=== PATIENT | male | born 1950 | race Caucasian/White ===

== ENCOUNTER 2018-07-19 12:30 | Inpatient (IN) ==
[~2018-07-19 12:30] MED LIST: DEXTROSE 50% 25 GM/50 ML SYRINGE IV PRN; GLUCAGON 1 MG VIAL IM PRN; ZALEPLON 5 MG CAPSULE PO PRN
[2018-07-19] MEDS: SODIUM CHLORIDE 0.9% 1,000 ML IV SCH (16:43)
[2018-07-19] MEDS: LISINOPRIL 20 MG TABLET PO SCH (16:44)
[2018-07-19] MEDS: CHLORHEXIDINE 0.12% ORAL RINSE 60 ML BOTTLE SWISH/SPIT SCH ×2 (17:02→20:36)
[2018-07-19] MEDS: ATORVASTATIN 40 MG TABLET PO SCH (20:36)
[2018-07-20 03:59] LABS: Basophils % 0.5 % (0.0-0.8); Eosinophils # 0.2 10*3/uL (0.0-0.87); Eosinophils % 2.7 % (0.00-10.9); Hematocrit 41.2 VOL% (42.0-52.0); Hemoglobin 13.5 GM/DL (14.0-18.0); Immature Granulocytes % 0.3 %; Immature Granulocytes Absolute 0.02 #; Lymphocytes # 2.2 10*3/uL (1.4-4.0); Lymphocytes % 29.5 % (21.2-54.2); Mean Corpuscular HGB Conc 32.8 GM/DL (32-36); Mean Corpuscular Hemoglobin 31 PG (27-34); Mean Corpuscular Volume 93.6 FL (87-102); Mean Platelet Volume 10.9 FL (9.6-12.0); Monocytes # 0.5 10*3/uL (0.11-0.8); Monocytes % 6.8 % (1.7-12.7); Neutrophils # 4.5 10*3/uL (1.4-7.4); Neutrophils % 60.2 % (38.7-73.9); Platelet Count 167 T/CUMM (130-400); Red Cell Distribution Width 12.3 % (9.3-17.3); White Blood Count 7.5 T/CUMM (4-12)
[2018-07-20 04:26] LABS: ABG Base Excess 1.2 MMOL/L (-2.5-2.5); ABG HCO3 25.2 MMOL/L (20-26); ABG Oxygen Saturation 93.6 % (95-100); ABG PCO2 37.8 MM HG (35-48); ABG PH 7.441 (7.35-7.45); ABG PO2 71.3 MM HG (80-95); ABG TCO2 26.3 MMOL/L (23-27); Allen Test Positive; Pt O2 Delivery Device Room Air
[2018-07-20 04:42] LABS: Albumin 3.2 G/DL (3.4-5.0); Bilirubin,Total 0.5 MG/DL (0.2-1.0); Calcium 8.9 MG/DL (8.5-10.1); Osmolality,Calculated 276.8 MOS/KG (273-304); Potassium 4.2 MMOL/L (3.5-5.1); Total Protein 6.6 G/DL (6.4-8.3)
[2018-07-20] MEDS: SODIUM CHLORIDE 0.9% 1,000 ML IV SCH (07:57)
[2018-07-20] MEDS: LISINOPRIL 20 MG TABLET PO SCH (08:23)
[2018-07-20] MEDS: CHLORHEXIDINE 0.12% ORAL RINSE 60 ML BOTTLE SWISH/SPIT SCH ×2 (08:38→21:22)
[2018-07-20] MEDS: ATORVASTATIN 40 MG TABLET PO SCH (21:23)
[2018-07-21] MEDS: CHLORHEXIDINE 4% SOLN 118 ML BOTTLE TOP SCH ×4 (09:42→21:45)
[2018-07-21] MEDS: LISINOPRIL 20 MG TABLET PO SCH (09:43)
[2018-07-21] MEDS: CHLORHEXIDINE 0.12% ORAL RINSE 60 ML BOTTLE SWISH/SPIT SCH ×2 (09:44→21:17)
[2018-07-21] MEDS: SODIUM CHLORIDE 0.9% 1,000 ML IV SCH (10:12)
[2018-07-21] MEDS: ATORVASTATIN 40 MG TABLET PO SCH (21:16)
[2018-07-22] MEDS ORDERED: VANCOMYCIN 1,000 MG VIAL ONE (05:08)
[2018-07-22] MEDS ORDERED: CALCIUM CHLORIDE 1,000 MG/10 ML VIAL IV ONE (05:52)
[2018-07-22] MEDS ORDERED: SUFentanil 250 MCG/5 ML AMP ONE ×2 (05:52)
[2018-07-22] MEDS ORDERED: AMINOCAPROIC ACID 5,000 MG/20 ML VIAL IV ONE ×2 (05:53)
[2018-07-22] MEDS ORDERED: MIDAZOLAM 10 MG/2 ML VIAL ONE (05:53)
[2018-07-22] MEDS ORDERED: CEFUROXIME INJ 1,500 MG in SYRINGE 1 EACH IV ONE (06:00)
[2018-07-22] MEDS ORDERED: FAMOTIDINE 20 MG TABLET PO ONE (06:00)
[2018-07-22] MEDS ORDERED: DIAZEPAM 5 MG TABLET PO ONE (06:00)
[2018-07-22] MEDS: SODIUM CHLORIDE 0.9% 1,000 ML IV SCH (06:30)
[2018-07-22 07:37] LABS: ABG Base Excess 0.3 MMOL/L (-2.5-2.5); ABG HCO3 24.8 MMOL/L (20-26); ABG PCO2 38.6 MM HG (35-48); ABG PH 7.414 (7.35-7.45); ABG TCO2 21.7 MMOL/L (23-27); Glucose Heart Surgery 95 MG/DL (74-106); Hematocrit Heart Surgery 38.3 PERCENT (42-52); Hemoglobin Heart Surgery 12.4 G/DL (14.0-18.0); Ionized Calcium Arterial 1.19 MMOL/L (1.21-1.46); PCO2 Patient Temp Arterial 38.6 MMHG; PH Patient Temp Arterial 7.414; Patient Temperature 37 CELCIUS; Potassium Heart/CVR 4.1 MMOL/L (3.5-5.1); Sodium Heart/CVR 133 MMOL/L (135-145)
[2018-07-22 08:01] LABS: Apearance,Urine Slightly Hazy (Clear); Bilirubin,Urine Negative (Negative); Blood, Urine Negative (Negative); Glucose,Urine (UA) Negative (Negative); Ketones,Urine Negative (Negative); Mucus,Urine Occasional /LPF (Occasional); Nitrite,Urine Negative (Negative); Protein,Urine Negative; RBC,Urine 1 /HPF (0-4); Urine Color Yellow (Yellow); Urine Specific Gravity 1.014 (1.001-1.035); Urine Urobilinogen < 2.0 EU/DL (0.2-1.0)
[2018-07-22] MEDS ORDERED: MINERAL OIL/PETROLATUM OPH OINT 3.5 GM TUBE ONE (08:27)
[2018-07-22] MEDS ORDERED: HEPARIN/NACL 0.9% 2 UNITS/ML 500 ML IV ONE (08:27)
[2018-07-22] MEDS ORDERED: PHENYLEPHRINE DRIP 20 MG/250 ML PREMIX IV ONE (08:27)
[2018-07-22] MEDS ORDERED: NITROGLYCERIN DRIP 50 MG/250 ML BOTTLE IV ONE (08:28)
[2018-07-22] MEDS ORDERED: ETOMIDATE 40 MG/20 ML VIAL IV ONE (08:28)
[2018-07-22] MEDS ORDERED: VECURONIUM 10 MG VIAL IV ONE ×2 (08:28→13:58)
[2018-07-22 08:36] LABS: Hematocrit Heart Surgery 30.8 PERCENT (42-52); PCO2 Patient Temp Venous 32.7 MM HG; PH Patient Temp Venous 7.48; PO2 Patient Temp Venous 44.1 MM HG; Potassium Heart/CVR 4.4 MMOL/L (3.5-5.1); VBG Base Excess 1.3 MEQ/L (0-4); VBG HCO3 25.4 MEQ/L (24-28); VBG Oxygen Saturation 87.3 %; VBG PCO2 36.1 MMHG (41-51); VBG PH 7.45; VBG PO2 50.6 MMHG (17-40)
[2018-07-22 08:59] LABS: Hematocrit Heart Surgery 32.1 PERCENT (42-52); Hemoglobin Heart Surgery 10.4 G/DL (14.0-18.0); PCO2 Patient Temp Venous 28.8 MM HG; PH Patient Temp Venous 7.504; Potassium Heart/CVR 4.3 MMOL/L (3.5-5.1); VBG Base Excess 0.3 MEQ/L (0-4); VBG HCO3 24.6 MEQ/L (24-28); VBG Oxygen Saturation 88.9 %; VBG PCO2 34.9 MMHG (41-51); VBG PH 7.445; VBG PO2 52.6 MMHG (17-40)
[2018-07-22] MEDS: LISINOPRIL 20 MG TABLET PO SCH (09:00)
[2018-07-22] MEDS: CHLORHEXIDINE 0.12% ORAL RINSE 60 ML BOTTLE SWISH/SPIT SCH ×2 (09:00→20:59)
[2018-07-22 09:31] LABS: Hematocrit Heart Surgery 33.1 PERCENT (42-52); Hemoglobin Heart Surgery 10.7 G/DL (14.0-18.0); PCO2 Patient Temp Venous 29.2 MM HG; PH Patient Temp Venous 7.508; PO2 Patient Temp Venous 38.1 MM HG; Potassium Heart/CVR 4.6 MMOL/L (3.5-5.1); VBG Base Excess 0.8 MEQ/L (0-4); VBG HCO3 24.9 MEQ/L (24-28); VBG Oxygen Saturation 84.8 %; VBG PCO2 33.8 MMHG (41-51); VBG PH 7.463; VBG PO2 46.9 MMHG (17-40)
[2018-07-22] MEDS ORDERED: CALCIUM CHLORIDE 1,000 MG/10 ML SYRINGE IV ONE (10:04)
[2018-07-22] MEDS ORDERED: PHENYLEPHRINE DRIP 40 MG/250 ML PREMIX IV ONE (10:04)
[2018-07-22] MEDS ORDERED: NITROPRUSSIDE 50 MG/2 ML VIAL ONE (10:04)
[2018-07-22] MEDS ORDERED: POTASSIUM CHLORIDE RIDER 100 ML IV ONE (10:05)
[2018-07-22 10:06] LABS: Hematocrit Heart Surgery 33.2 PERCENT (42-52); Hemoglobin Heart Surgery 10.8 G/DL (14.0-18.0); PCO2 Patient Temp Venous 41.7 MM HG; PH Patient Temp Venous 7.391; PO2 Patient Temp Venous 44.2 MM HG; Potassium Heart/CVR 5.1 MMOL/L (3.5-5.1); VBG Base Excess 0.3 MEQ/L (0-4); VBG HCO3 24.3 MEQ/L (24-28); VBG Oxygen Saturation 77.9 %; VBG PCO2 41.7 MMHG (41-51); VBG PH 7.391; VBG PO2 44.2 MMHG (17-40)
[2018-07-22 10:27] LABS: ABG Base Excess -1.4 MMOL/L (-2.5-2.5); ABG HCO3 23.2 MMOL/L (20-26); ABG Oxygen Saturation 99.7 % (95-100); ABG PCO2 42.2 MM HG (35-48); ABG PH 7.362 (7.35-7.45); ABG TCO2 21.6 MMOL/L (23-27); Glucose Heart Surgery 171 MG/DL (74-106); Hematocrit Heart Surgery 33.6 PERCENT (42-52); Hemoglobin Heart Surgery 10.9 G/DL (14.0-18.0); Ionized Calcium Arterial 1.26 MMOL/L (1.21-1.46); PCO2 Patient Temp Arterial 42.2 MMHG; PH Patient Temp Arterial 7.362; Patient Temperature 37 CELCIUS; Potassium Heart/CVR 4.5 MMOL/L (3.5-5.1); Sodium Heart/CVR 132 MMOL/L (135-145)
[2018-07-22] MEDS ORDERED: MANNITOL 100 GM/500 ML BAG IV ONE (10:29)
[2018-07-22] MEDS ORDERED: FUROSEMIDE 20 MG/2 ML VIAL ONE (10:30)
[2018-07-22] MEDS ORDERED: PROTAMINE SULFATE 250 MG/25 ML VIAL IV ONE (10:30)
[2018-07-22] MEDS ORDERED: DEXTROSE 5% KCL 20 MEQ 20 MEQ/1,000 ML BAG IV ONE (10:30)
[2018-07-22] MEDS ORDERED: methylPREDNISolone SOD SUC 1,000 MG/8 ML VIAL ONE (10:30)
[2018-07-22] MEDS ORDERED: HEPARIN 10,000 UNIT/10 ML VIAL ONE (10:30)
[2018-07-22] MEDS ORDERED: SODIUM BICARBONATE 50 MEQ/50 ML SYRINGE IV ONE ×2 (10:30→18:31)
[2018-07-22] MEDS ORDERED: ALBUMIN 25% 25 GM/100 ML VIAL IV ONE (10:30)
[2018-07-22] MEDS ORDERED: PROTAMINE SULFATE 50 MG/5 ML VIAL IV ONE ×4 (10:31→18:58)
[2018-07-22] MEDS ORDERED: THROMBIN TOPICAL (RECOMBINANT) 5,000 UNIT VIAL TOP ONE ×2 (11:42→12:21)
[2018-07-22 11:47] LABS: ABG Base Excess -1.1 MMOL/L (-2.5-2.5); ABG HCO3 23.5 MMOL/L (20-26); ABG PCO2 43.4 MM HG (35-48); ABG PH 7.358 (7.35-7.45); ABG TCO2 22.6 MMOL/L (23-27); Glucose Heart Surgery 185 MG/DL (74-106); Hematocrit Heart Surgery 27.6 PERCENT (42-52); Hemoglobin Heart Surgery 8.9 G/DL (14.0-18.0); Ionized Calcium Arterial 1.05 MMOL/L (1.21-1.46); PCO2 Patient Temp Arterial 43.4 MMHG; PH Patient Temp Arterial 7.358; Patient Temperature 37 CELCIUS; Potassium Heart/CVR 4.3 MMOL/L (3.5-5.1); Sodium Heart/CVR 134 MMOL/L (135-145)
[2018-07-22] MEDS: PHENYLEPHRINE DRIP 40 MG/250 ML PREMIX IV PRN ×2 (13:05→18:20)
[2018-07-22] MEDS ORDERED: VECURONIUM 10 MG VIAL IV PRN ×2 (13:19)
[2018-07-22] MEDS ORDERED: POTASSIUM CHLORIDE RIDER 10 MEQ in PREMIX 1 EACH IV PRN (13:19)
[2018-07-22] MEDS ORDERED: DEXTROSE 50% 25 GM/50 ML SYRINGE IV PRN ×2 (13:19)
[2018-07-22] MEDS ORDERED: NITROPRUSSIDE 100 MG in DEXTROSE 5% 250 ML IV PRN (13:19)
[2018-07-22] MEDS ORDERED: ONDANSETRON 4 MG/2 ML VIAL IV PRN (13:19)
[2018-07-22] MEDS ORDERED: INSULIN REGULAR 100 UNIT/ML IV ONE (13:19)
[2018-07-22] MEDS ORDERED: MIDAZOLAM 2 MG/2 ML VIAL IV PRN (13:19)
[2018-07-22] MEDS ORDERED: MIDAZOLAM 10 MG/2 ML VIAL IV PRN (13:19)
[2018-07-22] MEDS ORDERED: MAGNESIUM SULF RIDER 4 GM in PREMIX 1 EACH IV PRN (13:19)
[2018-07-22] MEDS ORDERED: INSULIN REGULAR 100 UNIT/ML IV PRN (13:19)
[2018-07-22] MEDS ORDERED: CALCIUM CHLORIDE 1,000 MG/10 ML SYRINGE IV PRN (13:19)
[2018-07-22] MEDS ORDERED: LACTATED RINGERS 250 ML IV PRN (13:19)
[2018-07-22] MEDS ORDERED: MORPHINE 10 MG/1 ML VIAL IV PRN (13:19)
[2018-07-22] MEDS ORDERED: ACETAMINOPHEN 650 MG SUPP RECTAL PRN (13:19)
[2018-07-22] MEDS ORDERED: MAGNESIUM SULF RIDER 2 GM in PREMIX 1 EACH IV PRN (13:19)
[2018-07-22 13:29] LABS: ABG Base Excess -4.3 MMOL/L (-2.5-2.5); ABG HCO3 20.9 MMOL/L (20-26); ABG Oxygen Saturation 99.4 % (95-100); ABG PCO2 45.6 MM HG (35-48); ABG PH 7.296 (7.35-7.45); ABG TCO2 20.5 MMOL/L (23-27); Basophils % 0.2 % (0.0-0.8); Eosinophils # 0.1 10*3/uL (0.0-0.87); Eosinophils % 0.3 % (0.00-10.9); Glucose Heart Surgery 186 MG/DL (74-106); Hematocrit 27.5 VOL% (42.0-52.0); Hematocrit Heart Surgery 29.8 PERCENT (42-52); Hemoglobin 9.1 GM/DL (14.0-18.0); Hemoglobin Heart Surgery 9.6 G/DL (14.0-18.0); Immature Granulocytes Absolute 0.18 #; Lymphocytes # 1.2 10*3/uL (1.4-4.0); Lymphocytes % 6.5 % (21.2-54.2); Mean Corpuscular HGB Conc 33.1 GM/DL (32-36); Mean Corpuscular Hemoglobin 31 PG (27-34); Mean Corpuscular Volume 93.5 FL (87-102); Mean Platelet Volume 10.7 FL (9.6-12.0); Monocytes # 0.8 10*3/uL (0.11-0.8); Monocytes % 4.6 % (1.7-12.7); Neutrophils # 15.3 10*3/uL (1.4-7.4); Neutrophils % 87.4 % (38.7-73.9); Platelet Count 181 T/CUMM (130-400); Potassium Heart/CVR 4.1 MMOL/L (3.5-5.1); Red Blood Count 2.94 MC/CUMM (3.8-5.5); Red Cell Distribution Width 12.7 % (9.3-17.3); White Blood Count 17.6 T/CUMM (4-12)
[2018-07-22] MEDS ORDERED: INSULIN REGULAR DRIP 100 ML IV SCH (13:30)
[2018-07-22] MEDS ORDERED: SODIUM CHLORIDE 0.45% 1,000 ML IV SCH ×2 (13:30)
[2018-07-22 13:41] LABS: INR 1.2; PT Patient Result 12.5 SECS; Partial Thromboplastin Time 29.3 SECS (0-40)
[2018-07-22 13:51] LABS: CKMB % 7.1 %
[2018-07-22] MEDS ORDERED: SEVOFLURANE 1 UNIT/15 MINUTE INH ONE (13:51)
[2018-07-22] MEDS ORDERED: SODIUM CHLORIDE 0.9% 2,000 ML IV ONE (13:52)
[2018-07-22] MEDS ORDERED: SODIUM CHLORIDE 0.9% 300 ML IV ONE (13:52)
[2018-07-22] MEDS ORDERED: ePHEDrine 50 MG/ML AMP ONE (13:52)
[2018-07-22] MEDS ORDERED: AMIODARONE 150 MG/3 ML VIAL ONE (13:52)
[2018-07-22] MEDS ORDERED: LACTATED RINGERS 1,000 ML IV ONE (13:52)
[2018-07-22] MEDS ORDERED: ESMOLOL 100 MG/10 ML VIAL IV ONE (13:52)
[2018-07-22 13:59] LABS: Troponin I 7.6 NG/ML (0.00-0.045)
[2018-07-22 14:13] LABS: Albumin 2.3 G/DL (3.4-5.0); Bilirubin,Total 0.9 MG/DL (0.2-1.0); Calcium 7.3 MG/DL (8.5-10.1); Osmolality,Calculated 284.7 MOS/KG (273-304); Potassium 4.2 MMOL/L (3.5-5.1); Total Protein 4.4 G/DL (6.4-8.3)
[2018-07-22] MEDS: KETOROLAC 30 MG/1 ML VIAL IV SCH ×2 (14:30→20:38)
[2018-07-22 14:40] LABS: ABG Base Excess -3.4 MMOL/L (-2.5-2.5); ABG HCO3 21.6 MMOL/L (20-26); ABG Oxygen Saturation 99.6 % (95-100); ABG PCO2 41.7 MM HG (35-48); ABG PH 7.335 (7.35-7.45); ABG TCO2 20.3 MMOL/L (23-27); Glucose Heart Surgery 166 MG/DL (74-106); Hematocrit Heart Surgery 31.1 PERCENT (42-52); Hemoglobin Heart Surgery 10.1 G/DL (14.0-18.0); Potassium Heart/CVR 4.7 MMOL/L (3.5-5.1)
[2018-07-22] MEDS: ALBUMIN 5% 12.5 GM in PREMIX 1 EACH IV PRN ×4 (15:17→17:30)
[2018-07-22] MEDS: ALBUTEROL/IPRATROPIUM 3 ML NEB RESP TX SCH ×2 (15:23→19:50)
[2018-07-22] MEDS ORDERED: FUROSEMIDE 40 MG/4 ML VIAL IV ONE (15:31)
[2018-07-22 15:56] LABS: Band Neutrophils 7 % (0-10); Lymphocytes 8 % (20-55); Segmented Neutrophils 84 % (50-85)
[2018-07-22 15:59] LABS: ABG Base Excess -3.6 MMOL/L (-2.5-2.5); ABG HCO3 21.4 MMOL/L (20-26); ABG Oxygen Saturation 98.9 % (95-100); ABG PCO2 40.2 MM HG (35-48); ABG PH 7.343 (7.35-7.45); ABG TCO2 20.1 MMOL/L (23-27); Glucose Heart Surgery 170 MG/DL (74-106); Hemoglobin Heart Surgery 9.4 G/DL (14.0-18.0); Potassium Heart/CVR 4.7 MMOL/L (3.5-5.1)
[2018-07-22 16:00] LABS: Anisocytosis Slight
[2018-07-22 16:02] LABS: Hypochromasia Slight; Ovalocytes Few; Poikilocytosis Slight
[2018-07-22 16:03] LABS: Platelet Estimate Normal; Total Cells Counted 100
[2018-07-22 18:12] LABS: ABG Base Excess -5.3 MMOL/L (-2.5-2.5); ABG Oxygen Saturation 98.9 % (95-100); ABG PCO2 46.8 MM HG (35-48); ABG PH 7.271 (7.35-7.45); ABG TCO2 20.1 MMOL/L (23-27); Glucose Heart Surgery 161 MG/DL (74-106); Hematocrit Heart Surgery 28.2 PERCENT (42-52); Hemoglobin Heart Surgery 9.1 G/DL (14.0-18.0); Potassium Heart/CVR 4.2 MMOL/L (3.5-5.1)
[2018-07-22] MEDS: POTASSIUM CHLORIDE RIDER 20 MEQ in PREMIX 1 EACH IV PRN ×2 (18:25→21:21)
[2018-07-22 20:59] LABS: ABG Base Excess -4.2 MMOL/L (-2.5-2.5); ABG HCO3 20.9 MMOL/L (20-26); ABG Oxygen Saturation 99.4 % (95-100); ABG PCO2 41.9 MM HG (35-48); ABG PH 7.321 (7.35-7.45); Glucose Heart Surgery 132 MG/DL (74-106); Hematocrit Heart Surgery 28.9 PERCENT (42-52); Hemoglobin Heart Surgery 9.3 G/DL (14.0-18.0); Potassium Heart/CVR 3.7 MMOL/L (3.5-5.1)
[2018-07-22] MEDS: CEFUROXIME INJ 1,500 MG in SYRINGE 1 EACH IV SCH (20:59)
[2018-07-22 21:24] LABS: CKMB % 6.3 %
[2018-07-22 21:27] LABS: Troponin I 5.01 NG/ML (0.00-0.045)
[2018-07-22] MEDS: MORPHINE 4 MG/1 ML VIAL IV PRN (22:25)
[2018-07-22 22:57] LABS: ABG Base Excess -2.3 MMOL/L (-2.5-2.5); ABG HCO3 22.5 MMOL/L (20-26); ABG Oxygen Saturation 99.2 % (95-100); ABG PCO2 34.7 MM HG (35-48); ABG PH 7.409 (7.35-7.45); ABG TCO2 20.2 MMOL/L (23-27); Glucose Heart Surgery 120 MG/DL (74-106); Hematocrit Heart Surgery 27.3 PERCENT (42-52); Hemoglobin Heart Surgery 8.8 G/DL (14.0-18.0); Potassium Heart/CVR 4.2 MMOL/L (3.5-5.1)
[2018-07-22 23:58] LABS: ABG Base Excess -2.1 MMOL/L (-2.5-2.5); ABG HCO3 22.6 MMOL/L (20-26); ABG Oxygen Saturation 99.3 % (95-100); ABG PCO2 33.9 MM HG (35-48); ABG PH 7.418 (7.35-7.45); ABG TCO2 20.2 MMOL/L (23-27); Glucose Heart Surgery 109 MG/DL (74-106); Hematocrit Heart Surgery 27.5 PERCENT (42-52); Hemoglobin Heart Surgery 8.9 G/DL (14.0-18.0)
[2018-07-23] MEDS: ALBUTEROL/IPRATROPIUM 3 ML NEB RESP TX SCH ×2 (00:57→07:31)
[2018-07-23 01:04] LABS: ABG HCO3 21.9 MMOL/L (20-26); ABG Oxygen Saturation 98.7 % (95-100); ABG PH 7.346 (7.35-7.45); ABG TCO2 20.8 MMOL/L (23-27); Glucose Heart Surgery 122 MG/DL (74-106); Hematocrit Heart Surgery 27.8 PERCENT (42-52); Hemoglobin Heart Surgery 8.9 G/DL (14.0-18.0); Potassium Heart/CVR 4.3 MMOL/L (3.5-5.1)
[2018-07-23] MEDS: ALBUMIN 5% 12.5 GM in PREMIX 1 EACH IV PRN ×2 (01:39→01:54)
[2018-07-23 04:00] LABS: ABG HCO3 23.6 MMOL/L (20-26); ABG PCO2 43.9 MM HG (35-48); ABG PH 7.355 (7.35-7.45); ABG TCO2 23.1 MMOL/L (23-27); Glucose Heart Surgery 147 MG/DL (74-106); Hematocrit Heart Surgery 24.2 PERCENT (42-52); Hemoglobin Heart Surgery 7.8 G/DL (14.0-18.0); Potassium Heart/CVR 4.5 MMOL/L (3.5-5.1)
[2018-07-23] MEDS: MORPHINE 4 MG/1 ML VIAL IV PRN ×5 (04:10→22:18)
[2018-07-23 04:15] LABS: Hematocrit 22.5 VOL% (42.0-52.0); Hemoglobin 7.4 GM/DL (14.0-18.0); Immature Granulocytes % 0.5 %; Immature Granulocytes Absolute 0.05 #; Lymphocytes # 0.8 10*3/uL (1.4-4.0); Lymphocytes % 7.3 % (21.2-54.2); Mean Corpuscular HGB Conc 32.9 GM/DL (32-36); Mean Corpuscular Hemoglobin 30 PG (27-34); Mean Corpuscular Volume 91.1 FL (87-102); Mean Platelet Volume 11.4 FL (9.6-12.0); Monocytes # 0.6 10*3/uL (0.11-0.8); Monocytes % 5.2 % (1.7-12.7); Neutrophils # 9.1 10*3/uL (1.4-7.4); Platelet Count 79 T/CUMM (130-400); Red Blood Count 2.47 MC/CUMM (3.8-5.5); Red Cell Distribution Width 13.7 % (9.3-17.3); White Blood Count 10.5 T/CUMM (4-12)
[2018-07-23 04:34] LABS: Albumin 3.4 G/DL (3.4-5.0); Bilirubin,Direct 0.26 MG/DL (0.0-0.20); Bilirubin,Total 0.8 MG/DL (0.2-1.0); Osmolality,Calculated 290.1 MOS/KG (273-304); Potassium 4.6 MMOL/L (3.5-5.1); Total Protein 5.1 G/DL (6.4-8.3)
[2018-07-23 04:36] LABS: CKMB % 5.1 %
[2018-07-23 04:41] LABS: Troponin I 3.58 NG/ML (0.00-0.045)
[2018-07-23 05:26] LABS: Band Neutrophils 1 % (0-10); Hypochromasia 1+; Lymphocytes 4 % (20-55); Platelet Estimate Decreased; Segmented Neutrophils 93 % (50-85); Total Cells Counted 100
[2018-07-23] MEDS ORDERED: SODIUM CHLORIDE 0.9% 1,000 ML IV PRN (05:29)
[2018-07-23 06:00] LABS: ABG Base Excess -0.4 MMOL/L (-2.5-2.5); ABG HCO3 24.1 MMOL/L (20-26); ABG Oxygen Saturation 98.2 % (95-100); ABG PCO2 43.1 MM HG (35-48); ABG TCO2 23.1 MMOL/L (23-27); Glucose Heart Surgery 121 MG/DL (74-106); Hematocrit Heart Surgery 27.1 PERCENT (42-52); Hemoglobin Heart Surgery 8.7 G/DL (14.0-18.0); Potassium Heart/CVR 4.5 MMOL/L (3.5-5.1)
[2018-07-23] MEDS ORDERED: INSULIN REGULAR 100 UNIT/ML SUBCUT SCH (08:00)
[2018-07-23] MEDS: CHLORHEXIDINE 0.12% ORAL RINSE 60 ML BOTTLE SWISH/SPIT SCH ×3 (09:00→22:25)
[2018-07-23] MEDS: CEFUROXIME INJ 1,500 MG in SYRINGE 1 EACH IV SCH ×3 (09:00→22:20)
[2018-07-23] MEDS ORDERED: DEXTROSE 50% 25 GM/50 ML VIAL IV PRN (09:20)
[2018-07-23] MEDS ORDERED: GLUCAGON 1 MG VIAL IM PRN ×2 (09:20)
[2018-07-23] MEDS ORDERED: ALUMINUM/MAGNES/SIMETH MAX STR 30 ML UDCUP PO PRN (09:20)
[2018-07-23] MEDS ORDERED: DEXTROSE 50% 25 GM/50 ML SYRINGE IV PRN (09:20)
[2018-07-23] MEDS ORDERED: MAGNESIUM HYDROXIDE SUSP 30 ML UDCUP PO PRN (09:20)
[2018-07-23] MEDS ORDERED: ACETAMINOPHEN 325 MG TABLET PO PRN (09:20)
[2018-07-23] MEDS ORDERED: MAGNESIUM SULF RIDER 2 GM in PREMIX 1 EACH IV PRN (09:20)
[2018-07-23] MEDS ORDERED: MAGNESIUM SULF RIDER 4 GM in PREMIX 1 EACH IV PRN (09:20)
[2018-07-23] MEDS ORDERED: ZALEPLON 5 MG CAPSULE PO PRN (09:20)
[2018-07-23] MEDS ORDERED: POTASSIUM CHLORIDE 20 MEQ TABLET PO PRN (09:20)
[2018-07-23] MEDS ORDERED: SODIUM CHLOR 0.45% KCL 20 MEQ 20 MEQ/1,000 ML BAG IV SCH (09:20)
[2018-07-23] MEDS ORDERED: ONDANSETRON 4 MG/2 ML VIAL IV PRN (09:20)
[2018-07-23] MEDS ORDERED: NON-FORMULARY MEDICATION (Umeclidinium Brm/Vilanterol Tr [Anoro Ellipta] 1 PUFF) INH SCH (09:20)
[2018-07-23] MEDS: PANTOPRAZOLE 40 MG TABLET PO SCH (09:50)
[2018-07-23] MEDS: ASPIRIN CHEW 81 MG TABLET PO SCH (09:50)
[2018-07-23] MEDS: FERROUS SULFATE 325 MG TABLET PO SCH (09:50)
[2018-07-23] MEDS: DOCUSATE SODIUM 100 MG CAPSULE PO SCH (09:50)
[2018-07-23] MEDS: LISINOPRIL 20 MG TABLET PO SCH (09:50)
[2018-07-23] MEDS: KETOROLAC 30 MG/1 ML VIAL IV SCH ×3 (09:50→20:30)
[2018-07-23] MEDS: FLUTICASONE 50 MCG NASAL SPRAY 16 GM BOTTLE BOTH NARES SCH (10:00)
[2018-07-23] MEDS: INSULIN REGULAR 100 UNIT/ML SUBCUT SCH ×2 (16:28→22:26)
[2018-07-23] MEDS: ATORVASTATIN 40 MG TABLET PO SCH (20:30)
[2018-07-24] MEDS: MORPHINE 4 MG/1 ML VIAL IV PRN ×2 (01:48→23:18)
[2018-07-24] MEDS: INSULIN REGULAR 100 UNIT/ML SUBCUT SCH ×6 (01:49→20:34)
[2018-07-24] MEDS: KETOROLAC 30 MG/1 ML VIAL IV SCH ×4 (03:40→21:16)
[2018-07-24] MEDS: oxyCODONE/ACETAMINOPHEN 5-325 MG TABLET PO PRN ×3 (04:40→20:22)
[2018-07-24 05:56] LABS: Albumin 3.2 G/DL (3.4-5.0); Bilirubin,Direct 0.17 MG/DL (0.0-0.20); Bilirubin,Indirect 0.7 MG/DL (0.0-1.0); Bilirubin,Total 0.9 MG/DL (0.2-1.0); CKMB % 2.3 %; Calcium 8.4 MG/DL (8.5-10.1); Osmolality,Calculated 283.7 MOS/KG (273-304); Potassium 4.9 MMOL/L (3.5-5.1); Total Protein 5.7 G/DL (6.4-8.3)
[2018-07-24 05:59] LABS: Troponin I 1.68 NG/ML (0.00-0.045)
[2018-07-24] MEDS ORDERED: FUROSEMIDE 40 MG/4 ML VIAL IV ONE (06:00)
[2018-07-24 06:31] LABS: Basophils % 0.1 % (0.0-0.8); Hematocrit 25.5 VOL% (42.0-52.0); Hemoglobin 8.5 GM/DL (14.0-18.0); Immature Granulocytes % 0.5 %; Immature Granulocytes Absolute 0.08 #; Lymphocytes % 6.2 % (21.2-54.2); Mean Corpuscular HGB Conc 33.3 GM/DL (32-36); Mean Corpuscular Hemoglobin 31 PG (27-34); Mean Corpuscular Volume 93.4 FL (87-102); Mean Platelet Volume 12.7 FL (9.6-12.0); Monocytes # 1.3 10*3/uL (0.11-0.8); Monocytes % 8.6 % (1.7-12.7); Neutrophils % 84.6 % (38.7-73.9); Red Blood Count 2.73 MC/CUMM (3.8-5.5)
[2018-07-24 06:35] LABS: Platelet Count 71 T/CUMM (130-400); White Blood Count 15.4 T/CUMM (4-12)
[2018-07-24 07:00] LABS: Hypochromasia Slight; Platelet Estimate Decreased
[2018-07-24] MEDS: ASPIRIN CHEW 81 MG TABLET PO SCH (09:03)
[2018-07-24] MEDS: LISINOPRIL 20 MG TABLET PO SCH (09:03)
[2018-07-24] MEDS: FERROUS SULFATE 325 MG TABLET PO SCH (09:03)
[2018-07-24] MEDS: DOCUSATE SODIUM 100 MG CAPSULE PO SCH (09:03)
[2018-07-24] MEDS: PANTOPRAZOLE 40 MG TABLET PO SCH (09:03)
[2018-07-24] MEDS: CHLORHEXIDINE 0.12% ORAL RINSE 60 ML BOTTLE SWISH/SPIT SCH ×2 (09:04→21:16)
[2018-07-24] MEDS: FLUTICASONE 50 MCG NASAL SPRAY 16 GM BOTTLE BOTH NARES SCH (09:04)
[2018-07-24] MEDS ORDERED: AMIODARONE INJ 150 MG in DEXTROSE 5% 100 ML IV ONE (13:43)
[2018-07-24] MEDS ORDERED: DILTIAZEM 50 MG/10 ML VIAL IV ONE (13:45)
[2018-07-24] MEDS ORDERED: AMIODARONE INJ 450 MG in DEXTROSE 5% 241 ML IV SCH (14:00)
[2018-07-24 14:18] LABS: Hematocrit 26.2 VOL% (42.0-52.0); Hemoglobin 8.7 GM/DL (14.0-18.0)
[2018-07-24] MEDS: dilTIAZem Drip 125 MG/125 ML PREMIX IV SCH (14:20)
[2018-07-24] MEDS: AMIODARONE INJ 450 MG in DEXTROSE 5% 241 ML IV SCH ×2 (15:05→23:00)
[2018-07-24] MEDS: ATORVASTATIN 40 MG TABLET PO SCH (21:16)
[2018-07-25] MEDS: INSULIN REGULAR 100 UNIT/ML SUBCUT SCH ×6 (00:09→20:39)
[2018-07-25] MEDS: oxyCODONE/ACETAMINOPHEN 5-325 MG TABLET PO PRN (01:21)
[2018-07-25] MEDS: KETOROLAC 30 MG/1 ML VIAL IV SCH ×4 (04:20→20:52)
[2018-07-25 04:53] LABS: Basophils % 0.1 % (0.0-0.8); Eosinophils % 0.2 % (0.00-10.9); Hematocrit 24.9 VOL% (42.0-52.0); Hemoglobin 8.2 GM/DL (14.0-18.0); Immature Granulocytes % 0.9 %; Immature Granulocytes Absolute 0.17 #; Mean Corpuscular HGB Conc 32.9 GM/DL (32-36); Mean Corpuscular Hemoglobin 31 PG (27-34); Mean Corpuscular Volume 94.3 FL (87-102); Mean Platelet Volume 11.5 FL (9.6-12.0); Monocytes # 1.6 10*3/uL (0.11-0.8); Neutrophils # 14.1 10*3/uL (1.4-7.4); Neutrophils % 78.8 % (38.7-73.9); Platelet Count 75 T/CUMM (130-400); Red Blood Count 2.64 MC/CUMM (3.8-5.5); Red Cell Distribution Width 13.4 % (9.3-17.3); White Blood Count 17.9 T/CUMM (4-12)
[2018-07-25 05:09] LABS: Alanine Aminotransferase 25 U/L (16-61); Alkaline Phosphatase 54 U/L (45-117); Aspartate Amino Transferase 27 U/L (0-37); Blood Urea Nitrogen 33 MG/DL (7-18); Calcium 8.4 MG/DL (8.5-10.1); Glucose 110 MG/DL (74-106); Osmolality,Calculated 277.1 MOS/KG (273-304); Sodium 135 MMOL/L (136-145); Total Protein 5.7 G/DL (6.4-8.3)
[2018-07-25 05:32] LABS: Band Neutrophils 1 % (0-10); Eosinophils 1 % (0-10); Hypochromasia Slight; Lymphocytes 12 % (20-55); Microcytosis Slight; Segmented Neutrophils 79 % (50-85); Total Cells Counted 100
[2018-07-25 05:33] LABS: Platelet Estimate Decreased
[2018-07-25] MEDS: dilTIAZem Drip 125 MG/125 ML PREMIX IV SCH ×2 (07:55→14:47)
[2018-07-25] MEDS: LISINOPRIL 20 MG TABLET PO SCH (08:52)
[2018-07-25] MEDS: PANTOPRAZOLE 40 MG TABLET PO SCH (08:53)
[2018-07-25] MEDS: FERROUS SULFATE 325 MG TABLET PO SCH (08:53)
[2018-07-25] MEDS: DOCUSATE SODIUM 100 MG CAPSULE PO SCH (08:53)
[2018-07-25] MEDS: ASPIRIN CHEW 81 MG TABLET PO SCH (08:53)
[2018-07-25] MEDS: CHLORHEXIDINE 0.12% ORAL RINSE 60 ML BOTTLE SWISH/SPIT SCH ×2 (08:58→20:55)
[2018-07-25] MEDS: FLUTICASONE 50 MCG NASAL SPRAY 16 GM BOTTLE BOTH NARES SCH (08:59)
[2018-07-25] MEDS: APIXABAN 5 MG TABLET PO SCH ×2 (09:07→20:52)
[2018-07-25] MEDS: ATORVASTATIN 40 MG TABLET PO SCH (20:52)
[2018-07-26] MEDS: INSULIN REGULAR 100 UNIT/ML SUBCUT SCH (00:42)
[2018-07-26] MEDS: oxyCODONE/ACETAMINOPHEN 5-325 MG TABLET PO PRN (01:56)
[2018-07-26] MEDS: LISINOPRIL 20 MG TABLET PO SCH (09:53)
[2018-07-26] MEDS: ASPIRIN CHEW 81 MG TABLET PO SCH (09:53)
[2018-07-26] MEDS: APIXABAN 5 MG TABLET PO SCH ×2 (09:54→21:45)
[2018-07-26] MEDS: FLUTICASONE 50 MCG NASAL SPRAY 16 GM BOTTLE BOTH NARES SCH (09:54)
[2018-07-26] MEDS: DOCUSATE SODIUM 100 MG CAPSULE PO SCH (09:54)
[2018-07-26] MEDS: CHLORHEXIDINE 0.12% ORAL RINSE 60 ML BOTTLE SWISH/SPIT SCH ×2 (09:54→21:45)
[2018-07-26] MEDS: PANTOPRAZOLE 40 MG TABLET PO SCH (09:54)
[2018-07-26] MEDS: FERROUS SULFATE 325 MG TABLET PO SCH (09:54)
[2018-07-26] MEDS: AMIODARONE 200 MG TABLET PO SCH ×2 (10:56→21:45)
[2018-07-26] MEDS: dilTIAZem Drip 125 MG/125 ML PREMIX IV SCH (10:57)
[2018-07-26] MEDS: AMIODARONE INJ 450 MG in DEXTROSE 5% 241 ML IV SCH (10:58)
[2018-07-26] MEDS ORDERED: hydrALAZINE 20 MG/1 ML VIAL IV PRN (12:14)
[2018-07-26] MEDS ORDERED: DILTIAZEM CD 120 MG CAPSULE PO SCH (12:30)
[2018-07-26] MEDS: ATORVASTATIN 40 MG TABLET PO SCH (21:45)
[2018-07-27 05:49] LABS: Basophils % 0.4 % (0.0-0.8); Eosinophils # 0.3 10*3/uL (0.0-0.87); Eosinophils % 3.3 % (0.00-10.9); Hematocrit 29.8 VOL% (42.0-52.0); Hemoglobin 9.8 GM/DL (14.0-18.0); Immature Granulocytes % 0.6 %; Immature Granulocytes Absolute 0.05 #; Lymphocytes # 0.1 10*3/uL (1.4-4.0); Mean Corpuscular HGB Conc 32.9 GM/DL (32-36); Mean Corpuscular Hemoglobin 31 PG (27-34); Mean Corpuscular Volume 94.3 FL (87-102); Mean Platelet Volume 10.6 FL (9.6-12.0); Monocytes # 0.9 10*3/uL (0.11-0.8); Monocytes % 11.1 % (1.7-12.7); Neutrophils # 6.7 10*3/uL (1.4-7.4); Neutrophils % 83.6 % (38.7-73.9); Platelet Count 156 T/CUMM (130-400); Red Blood Count 3.16 MC/CUMM (3.8-5.5); Red Cell Distribution Width 14.4 % (9.3-17.3)
[2018-07-27 06:13] LABS: Alanine Aminotransferase 9 U/L (16-61); Albumin 1.9 G/DL (3.4-5.0); Alkaline Phosphatase 86 U/L (45-117); Aspartate Amino Transferase 9 U/L (0-37); Bilirubin,Indirect 0.3 MG/DL (0.0-1.0); Bilirubin,Total < 0.39 MG/DL (0.2-1.0); Blood Urea Nitrogen 42 MG/DL (7-18); Calcium 7.1 MG/DL (8.5-10.1); Glucose 122 MG/DL (74-106); Potassium 4.4 MMOL/L (3.5-5.1); Sodium 136 MMOL/L (136-145); Troponin I 0.017 NG/ML (0.00-0.045)
[2018-07-27 06:27] LABS: Eosinophils 2 % (0-10); Hypochromasia Slight; Lymphocytes 1 % (20-55); Segmented Neutrophils 87 % (50-85); Total Cells Counted 100
[2018-07-27 06:28] LABS: Burr Cells Few; Ovalocytes 2+; Platelet Estimate Normal
[2018-07-27] MEDS: LISINOPRIL 20 MG TABLET PO SCH (08:34)
[2018-07-27] MEDS: DOCUSATE SODIUM 100 MG CAPSULE PO SCH (08:35)
[2018-07-27] MEDS: FLUTICASONE 50 MCG NASAL SPRAY 16 GM BOTTLE BOTH NARES SCH (08:35)
[2018-07-27] MEDS: PANTOPRAZOLE 40 MG TABLET PO SCH (08:35)
[2018-07-27] MEDS: FERROUS SULFATE 325 MG TABLET PO SCH (08:35)
[2018-07-27] MEDS: ASPIRIN CHEW 81 MG TABLET PO SCH (08:35)
[2018-07-27] MEDS: APIXABAN 5 MG TABLET PO SCH ×2 (08:35→20:40)
[2018-07-27] MEDS: AMIODARONE 200 MG TABLET PO SCH ×2 (08:35→20:40)
[2018-07-27] MEDS: CHLORHEXIDINE 0.12% ORAL RINSE 60 ML BOTTLE SWISH/SPIT SCH ×2 (08:36→20:45)
[2018-07-27 09:58] LABS: Calcium 8.5 MG/DL (8.5-10.1); Osmolality,Calculated 275.1 MOS/KG (273-304); Potassium 4.2 MMOL/L (3.5-5.1)
[2018-07-27] MEDS ORDERED: cloNIDine 0.1 MG TABLET PO SCH (15:00)
[2018-07-27] MEDS ORDERED: CLORAZEPATE 7.5 MG TABLET PO ONE (19:36)
[2018-07-27] MEDS: ATORVASTATIN 40 MG TABLET PO SCH (20:40)
[2018-07-28] MEDS: oxyCODONE/ACETAMINOPHEN 5-325 MG TABLET PO PRN ×2 (01:40→21:03)
[2018-07-28] MEDS ORDERED: AMIODARONE INJ 150 MG in DEXTROSE 5% 100 ML IV ONE (04:18)
[2018-07-28 04:30] LABS: Basophils % 0.2 % (0.0-0.8); Eosinophils # 0.4 10*3/uL (0.0-0.87); Eosinophils % 3.1 % (0.00-10.9); Hematocrit 24.1 VOL% (42.0-52.0); Hemoglobin 7.7 GM/DL (14.0-18.0); Immature Granulocytes % 0.9 %; Immature Granulocytes Absolute 0.12 #; Lymphocytes # 2.4 10*3/uL (1.4-4.0); Lymphocytes % 18.3 % (21.2-54.2); Mean Corpuscular Hemoglobin 30 PG (27-34); Mean Corpuscular Volume 93.8 FL (87-102); Mean Platelet Volume 10.9 FL (9.6-12.0); Neutrophils % 69.5 % (38.7-73.9); Platelet Count 144 T/CUMM (130-400); Red Blood Count 2.57 MC/CUMM (3.8-5.5); Red Cell Distribution Width 12.9 % (9.3-17.3); White Blood Count 12.9 T/CUMM (4-12)
[2018-07-28 06:54] LABS: Alanine Aminotransferase 44 U/L (16-61); Albumin 2.8 G/DL (3.4-5.0); Alkaline Phosphatase 69 U/L (45-117); Aspartate Amino Transferase 29 U/L (0-37); Bilirubin,Indirect 0.4 MG/DL (0.0-1.0); Blood Urea Nitrogen 18 MG/DL (7-18); Calcium 8.4 MG/DL (8.5-10.1); Glucose 98 MG/DL (74-106); Osmolality,Calculated 271.1 MOS/KG (273-304); Potassium 4.5 MMOL/L (3.5-5.1); Sodium 135 MMOL/L (136-145); Total Protein 5.8 G/DL (6.4-8.3)
[2018-07-28 07:01] LABS: Troponin I 0.645 NG/ML (0.00-0.045)
[2018-07-28] MEDS: APIXABAN 5 MG TABLET PO SCH ×2 (08:38→20:59)
[2018-07-28] MEDS: FLUTICASONE 50 MCG NASAL SPRAY 16 GM BOTTLE BOTH NARES SCH (08:39)
[2018-07-28] MEDS: DOCUSATE SODIUM 100 MG CAPSULE PO SCH (08:39)
[2018-07-28] MEDS: CHLORHEXIDINE 0.12% ORAL RINSE 60 ML BOTTLE SWISH/SPIT SCH ×2 (08:39→20:59)
[2018-07-28] MEDS: FERROUS SULFATE 325 MG TABLET PO SCH (08:39)
[2018-07-28] MEDS: AMIODARONE 200 MG TABLET PO SCH ×2 (08:39→20:59)
[2018-07-28] MEDS: ASPIRIN CHEW 81 MG TABLET PO SCH (08:39)
[2018-07-28] MEDS: PANTOPRAZOLE 40 MG TABLET PO SCH (08:39)
[2018-07-28] MEDS ORDERED: DILTIAZEM 50 MG/10 ML VIAL IV ONE (08:57)
[2018-07-28] MEDS: DILTIAZEM CD 120 MG CAPSULE PO SCH (09:13)
[2018-07-28] MEDS: dilTIAZem Drip 125 MG/125 ML PREMIX IV SCH (09:14)
[2018-07-28] MEDS: ATORVASTATIN 40 MG TABLET PO SCH (20:59)
[2018-07-29] MEDS: CHLORHEXIDINE 0.12% ORAL RINSE 60 ML BOTTLE SWISH/SPIT SCH ×2 (09:28→21:03)
[2018-07-29] MEDS: APIXABAN 5 MG TABLET PO SCH ×2 (09:28→21:02)
[2018-07-29] MEDS: FERROUS SULFATE 325 MG TABLET PO SCH (09:28)
[2018-07-29] MEDS: DILTIAZEM CD 120 MG CAPSULE PO SCH (09:28)
[2018-07-29] MEDS: DOCUSATE SODIUM 100 MG CAPSULE PO SCH (09:28)
[2018-07-29] MEDS: ASPIRIN CHEW 81 MG TABLET PO SCH (09:28)
[2018-07-29] MEDS: AMIODARONE 200 MG TABLET PO SCH ×2 (09:28→21:02)
[2018-07-29] MEDS: PANTOPRAZOLE 40 MG TABLET PO SCH (09:28)
[2018-07-29] MEDS: FLUTICASONE 50 MCG NASAL SPRAY 16 GM BOTTLE BOTH NARES SCH (09:29)
[2018-07-29] MEDS: dilTIAZem Drip 125 MG/125 ML PREMIX IV SCH (09:34)
[2018-07-29] MEDS: oxyCODONE/ACETAMINOPHEN 5-325 MG TABLET PO PRN (21:02)
[2018-07-29] MEDS: ATORVASTATIN 40 MG TABLET PO SCH (21:02)
[2018-07-30] MEDS: oxyCODONE/ACETAMINOPHEN 5-325 MG TABLET PO PRN (03:08)
[2018-07-30] MEDS: APIXABAN 5 MG TABLET PO SCH (09:22)
[2018-07-30] MEDS: FERROUS SULFATE 325 MG TABLET PO SCH (09:22)
[2018-07-30] MEDS: PANTOPRAZOLE 40 MG TABLET PO SCH (09:22)
[2018-07-30] MEDS: AMIODARONE 200 MG TABLET PO SCH (09:22)
[2018-07-30] MEDS: DILTIAZEM CD 120 MG CAPSULE PO SCH (09:22)
[2018-07-30] MEDS: DOCUSATE SODIUM 100 MG CAPSULE PO SCH (09:22)
[2018-07-30] MEDS: dilTIAZem Drip 125 MG/125 ML PREMIX IV SCH (09:24)
[2018-07-30] MEDS: ASPIRIN CHEW 81 MG TABLET PO SCH (09:24)
[2018-07-30] MEDS: CHLORHEXIDINE 0.12% ORAL RINSE 60 ML BOTTLE SWISH/SPIT SCH (09:24)
[2018-07-30] MEDS: FLUTICASONE 50 MCG NASAL SPRAY 16 GM BOTTLE BOTH NARES SCH (09:25)
[2018-07-30 12:31] VITALS: BP 130/90
== END 2018-07-30 14:52 | disposition home health service (06) | DRG 220 ==
LOC: N.TELES 15:26 → N.CVR 07-22 07:37 → N.ICU 07-23 07:04 → N.CVR 07-23 11:19 → N.TELES 07-23 14:40